=== PATIENT | female | born 1965 | race Caucasian/White ===

== ENCOUNTER 2023-04-04 00:48 | Inpatient (IN) | payer OTHER, SELFPAY ==
[2023-04-04 01:24] VITALS: BMI 21.6
[2023-04-04 01:25] VITALS: BP 132/67; PULSE 80; TEMP 36.5; O2SAT 98
--- NOTE | 2023-04-04 02:53 | PC.NURSE ---
this is the first behavioral health admission for this 58 year old female. legal: CV. dx: unspecified psychotic d/o. nurse to nurse, collateral information obtained prior to admission. patient was a referral from [facility] after assessment was done by Michaelle. patient was a referral to [facility] due to 's concern of her mental well being describing erratic, agitated and confused behavior at home. behaviors included physical acting out towards him, poor sleep and appearance of confusion, nonsensical statements. no documented incidents of suicidal thinking and denied on admission. patient does describe self as an ''anxious Maru'' patient was at [facility] since 04/02/23 @ 0846. during assessment patient was clear, able to follow directions and answer questions without hesitation. no behavioral health providers. no reported HX of treatment. 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 patient with nephrostomy tube and external bag. reports changing dsd daily-currently dry, clean and intact. reports needing to flush tubing bid. due to medical status was placed on 5 minute checks upon arrival to unit and will continue to stay on 5's. it is noted that patient has a flagged adverse reaction to codeine ''I get morgan'' but has been prescribed oxycodone for pain management. patient did not receive any oxycodone while in the ER. hospitalist consult placed for assessment, care orders and to evaluate other pain management options. patient is also focused on her sense of feeling constipated but did state having a BM 04/03/23. oriented to unit. safety tool completed. treatment plan initiated.
--- NOTE | 2023-04-04 04:52 | PC.NURSE ---
behavior-patient slept for 1 hour. on rising was hyperverbal. clapps hands/fingers and calls them ''ticks' some mood lability noted.
[2023-04-04] MEDS: LORazepam 1 MG TABLET PO ×2 (05:16→23:46)
[2023-04-04] MEDS: Acetaminophen 325 MG TABLET 650 MG PO ×3 (05:17→21:13)
--- NOTE | 2023-04-04 05:33 | PC.NURSE ---
urine bag-150 cc dark yellow urine with no sediment noted, emptied at this time.
[2023-04-04 08:45] VITALS: BP 132/75; PULSE 95; RESP 18; TEMP 36.6; O2SAT 99
--- NOTE | 2023-04-04 11:12 | P.CONHOSP_ITS ---
History of Present Illness Data of Consult Service Date: 04/04/23 Primary Care Provider: Unknown Physician HPI Reason for consult: Admission H&P Pt is a 58-year-old female with a PMH significant for?hx of left hip fracture, galucoma, obstructing nephrolithiasis with nephrostomy in place, chronic left hip and leg pain on chronic opioids, and unspecified psychotic disorder who is admitted to psychiatry unit for feeling overwhelmed and having disorganized, paranoid, delusional thoughts about family. Medical consult for admission H&P. Patient recently presented to [facility] on 03/21/2023 with severe abdominal pain and CT of abdomen pelvis showed 27 mm obstructing stone in the left ureteropelvic junction. Patient then had placement of a left percutaneous nephrostomy. Patient's hospital course was complicated by fluid overload and clots forming in her PCN tube, which need to be flushed q8hr with normal saline. Patient not currently complaining of back pain or pain at site of urostomy, but notes occasional mild abdominal ?discomfort.? Patient states her appetite varies, sometimes she to eat, other times she only has a bite or two before experiencing anorexia. Patient is a former smoker who now vapes, also smokes marijuana daily, denies more than occasional social alcohol use, denies recent drug use. Patient also states she has a history of a broken right hip some years ago for which she did not seek immediate medical attention. Patient states bedtime she saw her PCP and had x-rays done, PCP stated that her hip had already fused. Patient complains of chronic left hip and leg pain and reduced ROM. Patient has been chronically on opioids years now, and complains of chronic constipation. Patient states she is trying to wean herself off of oxycodone. Review of Systems Review of Systems: Cold sores in mouth Chronic left hip and leg pain Chronic constipation Yes all other systems are reviewed and are negative PMFSH Social History Household Members: Spouse Housing: House Do you presently have visiting nurse or other home services: No Patient Tobacco Use Status: Never used Tobacco Years Smoked: 12 years Smoked in Last 30 Days: Yes e-Cigarette/Vaping Use: Currently Using Frequency of e-Cigarette/Vaping Use: every day Patient Interested in Nicotine Replacement: Yes (lozenger) Second Hand Smoke Exposure: No Use of substances other than those prescribed or required for medical reasons: Yes Substance Use Type: Marijuana Substance Use Frequency: Daily Last Used Substance: Days (ago) Currently Displaying Signs/Symptoms of Drug Intoxication Withdrawal: No Any prior treatment program specific to substance use: No Have you been hit, kicked, punched, or otherwise hurt by someone within the past year? If so, by whom?: No Do you feel safe in your current relationship?: Yes Is there a partner from a previous relationship who is making you feel unsafe now?: No Are you made to feel afraid or neglected: No Spiritual Healthcare Practices: none identified Adventism Healthcare Practices: none identified Cultural Healthcare Practices: none identified Advance Directives: No Advance Directives Information Provided: No Do you have thoughts of harming others: None Do you have a plan to hurt others: No Plan Recently lost weight without trying: No How much weight loss: Not applicable Eating poorly because of decreased appetite: No Nutrition screen score: 0 Nutrition Risks: No Nutritional Risk Patient : No : No Poor oral hygiene: No (missing teeth) service: No Sexual orientation: Straight/Heterosexual Meds Allergies Allergy/AdvReac Type Severity Reaction Status Date / Time Sulfa (Sulfonamide Allergy Hives Verified 04/04/23 02:00 Antibiotics) codeine AdvReac Agitated Verified 04/04/23 02:00 Active Medications: Current Medications Acetaminophen (Acetaminophen 325 Mg Tablet) 650 mg PO Q6H PRN PRN Reason: Headache/Pain Mild Scale (1-3) Last Admin: 04/04/23 05:17 Dose: 650 mg Al Hydroxide/Mg Hydroxide (Magnesium Hydrox/Alum Hydrox 30 Ml Oral.Susp) 30 ml PO Q6H PRN PRN Reason: Heartburn/Nausea Hydroxyzine HCl (Hydroxyzine Hcl 25 Mg Tablet) 25 mg PO Q6H PRN PRN Reason: Anxiety Lorazepam (Lorazepam 1 Mg Tablet) 1 mg PO Q6H PRN PRN Reason: Anxiety Last Admin: 04/04/23 05:16 Dose: 1 mg Magnesium Hydroxide (Milk Of Magnesia 30 Ml Oral.Susp) 30 ml PO DAILY PRN PRN Reason: Constipation Ondansetron HCl (Ondansetron Odt 8 Mg Tab.Rapdis) 8 mg TRANSLINGU Q8H PRN PRN Reason: Nausea Oxycodone HCl (Oxycodone Hcl Immed Release 5 Mg Tablet) 5 mg PO Q6H PRN PRN Reason: Pain, Moderate(Pain Scale 4-6) Trazodone HCl (Trazodone Hcl 50 Mg Tablet) 50 mg PO BEDTIME MRX1 PRN PRN Reason: Insomnia Home Medications Medication Instructions Recorded Confirmed Last Taken Type naloxone 4 mg/actuation nasal spray spray intranasal NEEDED PRN 04/04/23 Unknown History Opiate Reversal ondansetron HCl 4 mg tablet 4 mg PO Q8H PRN Nausea 04/04/23 04/04/23 Unknown History oxybutynin chloride 5 mg 5 mg PO DAILY 04/04/23 04/04/23 04/03/23 10:00 History tablet,extended release 24 hr oxycodone 5 mg tablet PO Q4-6H PRN Pain 04/04/23 2 Days Ago History ~04/02/23 Physical Exam Vital Signs and Narrative: Vital Signs: Last Vital Signs Temp 97.9 F 04/04/23 08:45 Pulse 95 04/04/23 08:45 Resp 18 04/04/23 08:45 BP 132/75 04/04/23 08:45 Pulse Ox 99 04/04/23 08:45 O2 Del Method Room Air 04/04/23 08:45 BMI result Body Mass Index 21.6 Constitutional: Alert, anxious, in no acute distress. Mental Status: Oriented to person, place and time. Eyes: Pupils are equal, round, and reactive to light. Ear, Nose, and Throat: Small apthous ulcer on left lateral aspect of tongue. Poor dentition. Mucous membranes moist. Ears and nose without deformities. Trachea midline. Respiratory: Clear to auscultation bilaterally. No wheezing, rales, or rhonchi. Cardiovascular: S1, S2 regular. No murmurs, rubs, or gallops. Gastrointestinal: Abdomen soft, non-tender, non-distended. Normal bowel sounds. Neurologic: Cranial nerves II-XII are grossly intact bilaterally. No focal neurological deficits. Moves all extremities spontaneously. Skin: No rashes or lesions noted. : Left-sided nephrostomy in place, draining clear yellow urine, no clots in tubing noted. Musculoskeletal: Diminished strength and limited ROM of right leg, chronic. Extremities: No edema. Psychiatric: Anxious with tangential thoughts. Results Labs 04/05/23 08:32 04/05/23 08:32 Assessment and Plan (1) Routine history and physical examination of adult: Status: Acute (2) Nephrolithiasis: Status: Acute Plan Pt is a 58-year-old female with a PMH significant for?hx of left hip fracture, galucoma, obstructing nephrolithiasis with nephrostomy in place, chronic left hip and leg pain on chronic opioids, and unspecified psychotic disorder who is admitted to psychiatry unit for feeling overwhelmed and having disorganized, paranoid, delusional thoughts about family. Medical consult for admission H&P. Mood disorder Plan as per Psychiatry Nephrolithiasis Patient with a 27 mm obstructing left ureteral stone Patient had nephrostomy placed on 03/21/2023 at [facility] Hospital course was complicated by UTI and clots obstructing her PCN tube At [facility] patient had PCN tube flushed with NS q8h; pt claims should be flushed bid outpatient Continue oxybutynin Will get urology consult for tube care Pt should have f/u with [facility] urology sometime between 03/13/2023-03/20/2023 Aphthous ulcers Patient complains of current outbreak on her tongue Continue Anbesol Fluid overload Patient's recent hospital course at [facility] complicated by fluid overload pl eural effusions Patient treated with Lasix in the hospital, not sent home on any diuretics Patient currently appears euvolemic Chronic left hip and leg pain Patient has been on oxycodone for years but states she has been trying to wean herself off and only use Tylenol Acetaminophen for pain management Monitor pain status Thank you for allowing us to participate in the care of this patient. We will continue to follow for now, pending Urology input. Please let us know if there are any acute complaints or questions. Time Spent With Patient Time: Total time managing care of this patient today ____ minutes.
[2023-04-04] MEDS: Ondansetron ODT 8 MG TAB.RAPDIS TRANSLINGU (16:39)
--- NOTE | 2023-04-04 16:47 | PC.NURSE ---
0945 dressing dry and intact to left flank area. Light Yellow urine draining into closed drainage bag. Kelli will empty bag herself.
--- NOTE | 2023-04-04 16:50 | PC.NURSE ---
Per Grayson, COMPLIANCE REPRESENTATIVE DEALER do not flush Nephrostomy tube or change dressing until Pt has urology consult scheduled for tomorrow , 04/05/2023
--- NOTE | 2023-04-04 17:27 | P.HPPS_ITS ---
HPI Date of Service: 04/04/23 Chief Complaint: Psychotic disorder Sources of Information: patient interviewed, chart reviewed and crisis/core team assessment reviewed HPI Subjective Notes: Schaffer Warning and Conditional Voluntary Narrative: Pt is 58 yo female admitted to from [facility] where she presented due to agitation, paranoia and delusions about family. Pts symptoms have a recent onset in context of medical issues; Pt has nephrostomy tube placed March 2023 for 27 mm nephrolithiasis. She also treated inpatient at [facility] for the tube placement but also for septicemia and UTI. She was discharged from [facility] on Mar 30 2023. Pt believes that her symptoms have been caused by the trauma of hospitalization where she experience severe SOB x 2 due to fluid compression and thouhght she would . She also believes the oxycodone which she says she did not ask for caused her to be loopy. She states she was trying not to take the oxycodone at home despite severe pain and that is why she was not sleeping and was pacing at night; she does say that her is a very regimented person and his anxiety about her treatment and the time schedule for medications, bandage changes and flusihng of tube made her more and more anxious;She present with labile mood, eager to talk, frequent tangents and losing track of her thoughts. she has memory loss for some of her hospital stay in March. Past Psychiatric History: Patient denies any past treatment for mental illness. describes herself as always having been an anxious person; reports using marijuana daily for years and says she has a medical card for it. Pt denies regular use of opiates prior to kidney stone which was diagnosed 03/21/23. she has had kidney stones in past and was on opiate at that time but denies use of opiates on a regular basis. She denies any other use of illicit drugs or ETOH. 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 Substance History: daily marijuana Trauma History: pt reports she thinks she has PTSD from recent medical events Diagnostics Vital Signs (24Hr): Vital Signs - 24 hr 04/04/23 01:25 04/04/23 08:45 Temperature 97.7 F 97.9 F Pulse Rate 80 95 Respiratory Rate 18 Blood Pressure 132/67 132/75 Pulse Oximetry 98 99 Oxygen Delivery Method Room Air Room Air BMI result Body Mass Index 21.6 Meds/Allergies Meds Home Medications Medication Instructions Recorded Confirmed Type naloxone 4 mg/actuation nasal spray spray intranasal NEEDED PRN 04/04/23 History Opiate Reversal ondansetron HCl 4 mg tablet 4 mg PO Q8H PRN Nausea 04/04/23 04/04/23 History oxybutynin chloride 5 mg 5 mg PO DAILY 04/04/23 04/04/23 History tablet,extended release 24 hr oxycodone 5 mg tablet PO Q4-6H PRN Pain 04/04/23 History Allergies Allergies Allergy/AdvReac Type Severity Reaction Status Date / Time Sulfa (Sulfonamide Allergy Hives Verified 04/04/23 02:00 Antibiotics) codeine AdvReac Agitated Verified 04/04/23 02:00 Mental Status Exam Mental Status Exam Narrative: In hospital [facility], hygiene fair, cooperative, pleasant, expansive, elevated mood with and anxiety and irritability;hyperaroused, does not express delusional ideas, no paranoid ideas, denies AH or VH , memory poor for recent events, judgment and insight fair to poor; denies SI or HI Assessment & Plan Assessment & Plan (1) Routine history and physical examination of adult: Status: Acute Code(s): Z00.00 - Encounter for general adult medical examination without abnormal findings (2) Nephrolithiasis: Status: Acute Code(s): N20.0 - Calculus of kidney (3) Unspecified psychosis: Status: Acute Code(s): F29 - Unspecified psychosis not due to a substance or known physiological condition (4) Anxiety about health: Status: Acute Code(s): F41.8 - Other specified anxiety disorders Plan Pt is a 58-year-old female with a PMH significant for?hx of left hip fracture, galucoma, obstructing nephrolithiasis with nephrostomy in place, chronic left hip and leg pain, Anxiety and unspecified psychotic disorder who is admitted to [facility] psychiatry unit for feeling overwhelmed and having disorganized, paranoid, delusional thoughts about family.Rule out Bipolar disorder; Rule out PTSD; Rule out Substance Induced Psychosis. Plan: CV 15 min checks Medical Management per Hospitalist consult Pending urology consult pt will need outpatient follow up at [facility] for [facility]rol[facility] collect collateral information ativan prn for anxiety oxycodone 5 mg and tylenol prn for pain managemnt monitor for opiate withdrawal reassess for SSRI if appropriate Patient educated on: diagnosis, medication risk/benefits and therapeutic strategies Informed Consent: understands and further education needed Reason for continued inpatient stay Substantial Risk for: harm to self, harm to others, inability to function and med/psych decompensation Statement Statement: I have reviewed the history and physical and performed a pertinent examination on my patient. No changes have occurred unless specified. If the History and Physical was not performed prior to admission, the Hospitalist's service will be consulted for completing the admission physical. Time Spent With Patient Time: Total time managing care of this patient today ___75_ minutes.
[2023-04-04 20:20] VITALS: BP 132/81; PULSE 96; RESP 18; TEMP 36.4; O2SAT 98
[2023-04-04] MEDS: traZODone HCL 50 MG TABLET PO ×2 (21:13→23:46)
[2023-04-05] MEDS: Ondansetron ODT 8 MG TAB.RAPDIS TRANSLINGU (02:11)
[2023-04-05] MEDS: Acetaminophen 325 MG TABLET 650 MG PO ×3 (05:18→21:13)
--- NOTE | 2023-04-05 05:49 | PC.NURSE ---
Kelli is noted t be hyper verbal and manic. she is very restless and unable to sleep except in brief naps the most she slept throughout the night was approximately 3 hours. she is perseverative about wanting to go home today 04/05/23. she has asked this quality analyst/technical writer multiple times if sh can go home I feel fine I'm not really confused any more and I too myself off the oxy so there's no reason to keep me here any longer
[2023-04-05 08:15] VITALS: BP 134/61; PULSE 87; RESP 18; TEMP 36.6; O2SAT 95
[2023-04-05 08:41] LABS: MANUAL DIFF FLAG NO
[2023-04-05 08:44] LABS: Basophils Absolute Auto 0.1 X10*3/uL (0.0-0.2); Basophils Percent Auto 0.9 % (0-2); Eosinophils Absolute Auto 0.1 X10*3/uL (0.0-0.4); Eosinophils Percent Auto 1.4 % (0-4); Hematocrit 32.8 % (37.0-47.0); Hemoglobin 10.4 g/dl (12.0-16.0); Imm Gran Abs Auto 0.05 X10*3/uL (0.00-0.03); Imm Gran Pct Auto 0.7 % (0.0-0.4); Lymphocytes Absolute Auto 1.5 X10*3/uL (1.2-4.9); Lymphocytes Percent Auto 20.2 % (20-40); Mean Corpuscular HGB Conc 31.7 g/dl (31.0-35.0); Mean Corpuscular Hemoglobin 31.7 pg (27.0-33.0); Mean Platelet Volume 9.2 fL (9.4-12.3); Monocytes Absolute Auto 0.6 X10*3/uL (0.1-1.2); Monocytes Percent Auto 8.7 % (2-11); Neutrophils Percent Auto 68.1 % (45-73); Platelet Count 396 X10*3/uL (160-400); Red Blood Count 3.28 X10*6/uL (4.20-5.50); White Blood Count 7.4 X10*3/uL (4.8-10.8)
[2023-04-05 09:12] LABS: Alanine Aminotransferase 13 U/L (0-31); Albumin Level 3.7 g/dL (3.5-5.0); Alkaline Phosphatase 97 U/L (39-117); Anion Gap 12 (12-20); Aspartate Amino Transferase 30 U/L (5-31); Bilirubin Direct 0.2 mg/dL (0.0-0.5); Bilirubin Total 0.6 mg/dL (0.0-1.0); Blood Urea Nitrogen 10 mg/dL (9-16); Carbon Dioxide 26 mmol/L (22-29); Chloride 108 mmol/L (96-108); Cholesterol 186 mg/dL; Creatinine Clr Calc Pharmacy 60.9; Estimated Glomerular Filt Rate > 60; Glucose Fasting 109 mg/dL (60-99); HDL Cholesterol 47 mg/dL; LDL Cholesterol Calculated 117 mg/dl; Potassium 4.8 mmol/L (3.3-5.1); Sodium 141 mmol/L (135-145); Total Protein 6.7 g/dL (6.5-8.0); Triglycerides 111 mg/dL
[2023-04-05] MEDS: oxyBUTYnin chloride ER 5 MG TAB.ER.24 PO (09:25)
[2023-04-05 09:31] LABS: Thyroid Stimulating Hormone 0.93 uIU/mL (0.32-4.0)
[2023-04-05] MEDS: LORazepam 1 MG TABLET PO ×2 (09:32→21:55)
--- NOTE | 2023-04-05 11:14 | PM.EVENT ---
Event Note Date of Service: 04/05/23 Event Note: Pt requiring nephrostomy tube care with obstructive 27mm stone (chronic) withoutpt follow up with urology. Urology has been consulted for further management of care. Thank you for allowing me to participate in this consult. Signing off at this time. Please do not hesitate to call for further questions. Time Spent With Patient Time: Total time managing care of this patient today ____ minutes.
[2023-04-05 11:29] LABS: Folate 12.1 ng/mL (> or = 4.0); Vitamin B12 1945 pg/mL (200-900)
--- NOTE | 2023-04-05 12:44 | P.CNUR_ITS ---
History of Present Illness Consult details Consult date: 04/05/23 Narrative: Consulting complaint - left nephrostomy tube 58-year-old female. Admitted M5 secondary to agitation, delusions. Recent admission to [facility] for treatment of urosepsis. Found to have 27 mm left renal stone Prior history of renal stones treated by Dr. Matthews at [facility] Seen at [facility] by [facility]. Nephrostomy tube placed for decompression It appears that the patient's psychologic State may have been secondary to treatment and management of urosepsis washed at [facility]. Discussion with patient and today regarding management of nephrostomy tube. May flush 5-6 cc every 3 days if minimal blood in urine drainage. Discussed nephrostomy dressing. There is planned follow-up with [facility] group regarding management of staghorn +ureteric stones. No acute urologic intervention required during this hospital admission Review of Systems Constitutional: Constitutional: Reports as per HPI and Reports no additional constitutional complaints Cardiovascular: Cardiovascular: Reports as per HPI and Reports no additional cardiovascular complaints Respiratory: Respiratory: Reports as per HPI and Reports no additional respiratory complaints Gastrointestinal: Gastrointestinal: Reports as per HPI and Reports no additional gastrointestinal complaints Genitourinary: Genitourinary: Reports as per HPI Musculoskeletal: Musculoskeletal: Reports no additional musculoskeletal complaints and Reports as per HPI Neurologic: Reports system reviewed and no additional complaints, except as documented and Reports as per HPI [facility] Social History Social History Household Members: Spouse Housing: House Do you presently have visiting nurse or other home services: No Patient Tobacco Use Status: Never used Tobacco Years Smoked: 12 years Smoked in Last 30 Days: Yes e-Cigarette/Vaping Use: Currently Using Frequency of e-Cigarette/Vaping Use: every day Patient Interested in Nicotine Replacement: Yes (lozenger) Second Hand Smoke Exposure: No Use of substances other than those prescribed or required for medical reasons: Yes Substance Use Type: Marijuana Substance Use Frequency: Daily Last Used Substance: Days (ago) Currently Displaying Signs/Symptoms of Drug Intoxication Withdrawal: No Any prior treatment program specific to substance use: No Have you been hit, kicked, punched, or otherwise hurt by someone within the past year? If so, by whom?: No Do you feel safe in your current relationship?: Yes Is there a partner from a previous relationship who is making you feel unsafe now?: No Are you made to feel afraid or neglected: No Spiritual Healthcare Practices: none identified Sabianist Healthcare Practices: none identified Cultural Healthcare Practices: none identified Advance Directives: No Advance Directives Information Provided: No Do you have thoughts of harming others: None Do you have a plan to hurt others: No Plan Recently lost weight without trying: No How much weight loss: Not applicable Eating poorly because of decreased appetite: No Nutrition screen score: 0 Nutrition Risks: No Nutritional Risk Patient : No : No Poor oral hygiene: No (missing teeth) Meds Allergies Allergy/AdvReac Type Severity Reaction Status Date / Time Sulfa (Sulfonamide Allergy Hives Verified 04/04/23 02:00 Antibiotics) codeine AdvReac Agitated Verified 04/04/23 02:00 Active Medications: Current Medications Acetaminophen (Acetaminophen 325 Mg Tablet) 650 mg PO Q6H PRN PRN Reason: Headache/Pain Mild Scale (1-3) Last Admin: 04/05/23 05:18 Dose: 650 mg Al Hydroxide/Mg Hydroxide (Magnesium Hydrox/Alum Hydrox 30 Ml Oral.Susp) 30 ml PO Q6H PRN PRN Reason: Heartburn/Nausea Benzocaine (Benzocaine 20 % Oral Gel 9 Gm Tube) 1 appl MUCOUS MEM QID PRN; Protocol PRN Reason: Pain, Mild (Pain Scale 1-3) Hydroxyzine HCl (Hydroxyzine Hcl 25 Mg Tablet) 25 mg PO Q6H PRN PRN Reason: Anxiety Lorazepam (Lorazepam 1 Mg Tablet) 1 mg PO Q6H PRN PRN Reason: Anxiety Last Admin: 04/05/23 09:32 Dose: 1 mg Magnesium Hydroxide (Milk Of Magnesia 30 Ml Oral.Susp) 30 ml PO DAILY PRN PRN Reason: Constipation Ondansetron HCl (Ondansetron Odt 8 Mg Tab.Rapdis) 8 mg TRANSLINGU Q8H PRN PRN Reason: Nausea Last Admin: 04/05/23 02:11 Dose: 8 mg Oxybutynin Chloride (Oxybutynin Chloride Er 5 Mg Tab.Er.24) 5 mg PO DAILY MORGAN Last Admin: 04/05/23 09:25 Dose: 5 mg Oxycodone HCl (Oxycodone Hcl Immed Release 5 Mg Tablet) 5 mg PO Q6H PRN PRN Reason: Pain, Moderate(Pain Scale 4-6) Trazodone HCl (Trazodone Hcl 50 Mg Tablet) 50 mg PO BEDTIME MRX1 PRN PRN Reason: Insomnia Last Admin: 04/04/23 23:46 Dose: 50 mg Home Medications Medication Instructions Recorded Confirmed Last Taken Type naloxone 4 mg/actuation nasal spray spray intranasal NEEDED PRN 04/04/23 Unknown History Opiate Reversal ondansetron HCl 4 mg tablet 4 mg PO Q8H PRN Nausea 04/04/23 04/04/23 Unknown History oxybutynin chloride 5 mg 5 mg PO DAILY 04/04/23 04/04/23 04/03/23 10:00 History tablet,extended release 24 hr oxycodone 5 mg tablet PO Q4-6H PRN Pain 04/04/23 2 Days Ago History ~04/02/23 Physical Exam Vital Signs: Vital Signs: Last Vital Signs Temp 97.8 F 04/05/23 08:15 Pulse 87 04/05/23 08:15 Resp 18 04/05/23 08:15 BP 134/61 04/05/23 08:15 Pulse Ox 95 04/05/23 08:15 O2 Del Method Room Air 04/05/23 08:15 BMI result Body Mass Index 21.6 Const: General: cooperative, healthy appearing, comfortable and no acute distress Orientation/consciousness: patient oriented x3 HEENT: Face and sinus: Yes normal facial exam Mouth: moist mucous membranes Neck: Neck: Yes normal visual inspection, Yes full ROM and Yes trachea midline Chest: Chest palpation & inspection: normal inspection of the chest Resp: Effort & Inspection: normal respiratory effort, able to speak in complete sentences and no respiratory distress GI: Inspection: Yes normal to inspection Back/Spine/Pelvis: Cervical Spine: normal cervical lordosis Thoracic/Lumbar Spine: thoracic and lumbar spine normal to inspection Skin: General skin exam: no rashes or lesions noted Neuro: General: patient oriented x3, tone normal and moves all extremities Extrem: General: Yes normal to inspection and Yes capillary refill normal Results Labs 04/05/23 08:32 04/05/23 08:32 Labs: Abnormal lab results 04/05/23 04/05/23 04/05/23 Range/Units 08:32 08:32 10:25 RBC 3.28 L (4.20-5.50) X10*6/uL Hgb 10.4 L (12.0-16.0) g/dl Hct 32.8 L (37.0-47.0) % MCV 100.0 H (80.0-98.0) fL MPV 9.2 L (9.4-12.3) fL Immature Gran % (Auto) 0.7 H (0.0-0.4) % Abs Immat Gran (auto) 0.05 H (0.00-0.03) X10*3/uL Fasting Glucose 109 H (60-99) mg/dL Vitamin B12 1945 H (200-900) pg/mL Short CBC 04/05/23 Range/Units 08:32 WBC 7.4 (4.8-10.8) X10*3/uL Hgb 10.4 L (12.0-16.0) g/dl Hct 32.8 L (37.0-47.0) % Plt Count 396 (160-400) X10*3/uL BMP 04/05/23 08:32 Sodium 141 Potassium 4.8 Chloride 108 Carbon Dioxide 26 BUN 10 Creatinine 0.76 Calcium 9.0 Liver Function 04/05/23 Range/Units 08:32 Total Bilirubin 0.6 (0.0-1.0) mg/dL Direct Bilirubin 0.2 (0.0-0.5) mg/dL AST 30 (5-31) U/L ALT 13 (0-31) U/L Alkaline Phosphatase 97 (39-117) U/L Albumin 3.7 (3.5-5.0) g/dL All other labs normal. Assessment and Plan (1) Nephrolithiasis: Status: Acute Plan Follow-up with [facility] as planned Time Spent With Patient Time: Total time managing care of this patient today ____ minutes. Procedures Date of Service Date of Service: 04/05/23
--- NOTE | 2023-04-05 13:35 | PC.NURSE ---
dressing to left flank area dry and intact, urine is clear Yellow draining into bag. Kelli empties her bag when about 1/[address] full .
--- NOTE | 2023-04-05 14:55 | HO.PSYCHPN ---
Subjective Subjective Date of Service: 04/05/23 Reason For Visit: Psychotic disorder Subjective Notes: Conditional Voluntary Interim History: Pt reports she was in excruciating pain s/s to kidney stone. She reports she has had them 2 years ago but not as big. She does present slightly as hyperverbal but no loose associations. She reports pain is less and at this point she relies mostly on acetaminophen. She denies SI/HI. no signs of psychosis or delusional. attention is fair. No overt s/s of delirum- pt fully oriented x 4. Pt seen by urologist, no procedure scheduled for inpt but pt instructed to follow up outpatient with urology. Medication Compliance: Yes Side effects from medications: No Attending Groups: Intermittent Review of Systems Review of Systems 27 mm nephrolithiasis nephrostomy tube placed March 2023 treated for UTI and septicemia March 2023 Cold sores in mouth Chronic left hip and leg pain Chronic constipation Yes all other systems are reviewed and are negative Constitutional: Reports as per HPI and Reports no additional constitutional complaints Cardiovascular: Reports as per HPI and Reports no additional cardiovascular complaints Respiratory: Reports as per HPI and Reports no additional respiratory complaints Gastrointestinal: Reports as per HPI and Reports no additional gastrointestinal complaints Musculoskeletal: Reports no additional musculoskeletal complaints and Reports as per HPI Reports system reviewed and no additional complaints, except as documented and Reports as per HPI Mental Status Exam Mental Status Exam Narrative: In hospital Fito, hygiene fair, cooperative, pleasant. Psychomotor: no agitation or retardation noted. Speech: clear, somewhat hyperverbal but not pressured. TC: does not express delusional ideas, no paranoid ideas, denies AH or VH. TP: tangential. Mood: better Affect: congruent, slightly expansive. No SI/HI. No psychosis or delusions. judgment/insight: improving x 2. Diagnostics Vital Signs (24Hr): Vital Signs - 24 hr 04/04/23 20:20 04/05/23 08:15 Temperature 97.6 F 97.8 F Pulse Rate 96 87 Respiratory Rate 18 18 Blood Pressure 132/81 134/61 Pulse Oximetry 98 95 Oxygen Delivery Method Room Air Room Air BMI result Body Mass Index 21.6 Labs 04/05/23 08:32 04/05/23 08:32 Labs: Laboratory Results - last 48 hr 04/05/23 04/05/23 04/05/23 08:32 08:32 10:25 WBC 7.4 RBC 3.28 L Hgb 10.4 L Hct 32.8 L MCV 100.0 H MCH 31.7 MCHC 31.7 RDW 14.0 Plt Count 396 MPV 9.2 L Immature Gran % (Auto) 0.7 H Neut % (Auto) 68.1 Lymph % (Auto) 20.2 [place] % (Auto) 8.7 Eos % (Auto) 1.4 Baso % (Auto) 0.9 Lymph # (Auto) 1.5 [place] # (Auto) 0.6 Eos # (Auto) 0.1 Baso # (Auto) 0.1 Abs Immat Gran (auto) 0.05 H Absolute Neuts (auto) 5.0 Absolute Nucleated RBC 0.000 Nucleated RBC % (auto) 0.0 Sodium 141 Potassium 4.8 Chloride 108 Carbon Dioxide 26 Anion Gap 12 BUN 10 Creatinine 0.76 Estim Creat Clear Calc 60.9 Estimated GFR > 60 Fasting Glucose 109 H Calcium 9.0 Total Bilirubin 0.6 Direct Bilirubin 0.2 AST 30 ALT 13 Alkaline Phosphatase 97 Total Protein 6.7 Albumin 3.7 Triglycerides 111 Cholesterol 186 LDL Cholesterol, Calc 117 HDL Cholesterol 47 Vitamin B12 1945 H Folate 12.1 TSH 0.93 Medications Medications Current Medications Acetaminophen (Acetaminophen 325 Mg Tablet) 650 mg PO Q6H PRN PRN Reason: Headache/Pain Mild Scale (1-3) Last Admin: 04/05/23 14:10 Dose: 650 mg Al Hydroxide/Mg Hydroxide (Magnesium Hydrox/Alum Hydrox 30 Ml Oral.Susp) 30 ml PO Q6H PRN PRN Reason: Heartburn/Nausea Benzocaine (Benzocaine 20 % Oral Gel 9 Gm Tube) 1 appl MUCOUS MEM QID PRN; Protocol PRN Reason: Pain, Mild (Pain Scale 1-3) Hydroxyzine HCl (Hydroxyzine Hcl 25 Mg Tablet) 25 mg PO Q6H PRN PRN Reason: Anxiety Lorazepam (Lorazepam 1 Mg Tablet) 1 mg PO Q6H PRN PRN Reason: Anxiety Last Admin: 04/05/23 09:32 Dose: 1 mg Magnesium Hydroxide (Milk Of Magnesia 30 Ml Oral.Susp) 30 ml PO DAILY PRN PRN Reason: Constipation Ondansetron HCl (Ondansetron Odt 8 Mg Tab.Rapdis) 8 mg TRANSLINGU Q8H PRN PRN Reason: Nausea Last Admin: 04/05/23 02:11 Dose: 8 mg Oxybutynin Chloride (Oxybutynin Chloride Er 5 Mg Tab.Er.24) 5 mg PO DAILY MORGAN Last Admin: 04/05/23 09:25 Dose: 5 mg Oxycodone HCl (Oxycodone Hcl Immed Release 5 Mg Tablet) 5 mg PO Q6H PRN PRN Reason: Pain, Moderate(Pain Scale 4-6) Trazodone HCl (Trazodone Hcl 50 Mg Tablet) 50 mg PO BEDTIME MRX1 PRN PRN Reason: Insomnia Last Admin: 04/04/23 23:46 Dose: 50 mg Allergies Allergies Allergy/AdvReac Type Severity Reaction Status Date / Time Sulfa (Sulfonamide Allergy Hives Verified 04/04/23 02:00 Antibiotics) codeine AdvReac Agitated Verified 04/04/23 02:00 Assessment & Plan Assessment & Plan (1) Acute delirium: Status: Acute Code(s): R41.0 - Disorientation, unspecified Plan Mrs. Nicole is a 58 year-old woman with no prior psych hx who recently found to have nephrolithiasis, sepsis who presented as agitated, confused most likely in setting of delirium. Pt today presents as coherent. No s/s of delirium. Pt seen by urology who recommend that she follows up with Outpatient urology. PLAN 1. No overt psychiatric condition. no signs of delirum at this point, which most likely explain acute presentation in ED.Pt can be discharged home. Aftercare planning. Patient educated on: diagnosis Informed Consent: understands Reason for continued inpatient stay Substantial Risk for: stable for discharge Time Spent With Patient Time: Total time managing care of this patient today ____ minutes.
[2023-04-05 20:05] VITALS: BP 166/73; PULSE 101; RESP 18; TEMP 36.6; O2SAT 98
[2023-04-05] MEDS: Milk of Magnesia 30 ML ORAL.SUSP PO (21:13)
--- NOTE | 2023-04-06 01:56 | PC.NURSE ---
Addendum entered by Jodie Brewer RN 04/06/23 04:08: Kelli has slept for brief naps throughout the night. she stated that she didn't want to go to sleep because she didn't want to sleep through her discharge time and then have to stay longer she remains hyperverbal manic and intrusive. earlier in the evening she stated that she had no idea when the last time she had a bowel movement (she had told this travel writer on 04/04 that she had moved her bowels on 04/04) and was offered either Milk of Magnesia or prune juice. she requested the prune juice then became somatic about drinking it oh boy I don't know if I can do this, maybe I don't need it. well I probably do. Oh God, ok here I go, oh God I can do it. ok ,ok, she was again offered prune juice, she declined it and drank the Milk of Magnesia. patient asked to do her laundry then later stated there now the hospital laundry is done time to do mine patient redirected for washing hospital laundry as it requires more specialized treatment then what a standard washer and dryer can provide. to which she responded well it was in my room so I figured I needed to wash it Original Note: Kelli was noted to be visible on the unit. she is pleasant, cooperative and social with peers and staff she continues to be hyperverbal and hypomanic. she remains perseverative about discharge. she denies all psychiatric symptoms. but then states well I guess I'm nervous, ya I think I am, maybe she continues to have multiple somatic complaints. oh I'm going to need a bucket, No I'm not going to vomit but I think I should have one just in case I do need to vomit continue to reassure, monitof or safety, continue Plan of Care
[2023-04-06] MEDS: Acetaminophen 325 MG TABLET 650 MG PO (04:03)
[2023-04-06] MEDS: LORazepam 1 MG TABLET PO (04:03)
[2023-04-06] MEDS: Ondansetron ODT 8 MG TAB.RAPDIS TRANSLINGU (06:07)
[2023-04-06 09:09] VITALS: BP 166/88; PULSE 98; RESP 16; TEMP 36.6; O2SAT 99
[2023-04-06] MEDS: oxyBUTYnin chloride ER 5 MG TAB.ER.24 PO (09:10)
--- NOTE | 2023-04-06 10:48 | PM.PSYDC ---
DS: Providers Provider Date of Service: 04/06/23 Date of admission: 04/04/23 00:48 Primary care physician: Unknown Physician Consults: 04/04/23 04:58 Consult to Hospitalist Routine Comment: Consulting Provider: Hospitalist Reason For Exam: new admit/nephrostomy in place for nephrolithiasis 04/04/23 13:20 Consult to Urology Routine Consulting Provider: Robin Carvalho Reason for consultation: Pt with nephrostomy, 27mm obstructing stone DS: Diagnosis Discharge Diagnosis (1) Routine history and physical examination of adult: Status: Inactive (2) Nephrolithiasis: Status: Acute DS: Medications Discharge Medications Home Medications: Home Medications Medication Instructions Recorded Confirmed oxybutynin chloride 5 mg 5 mg PO DAILY 04/04/23 04/04/23 tablet,extended release 24 hr Previous Rx's Medication Instructions Recorded naloxone 4 mg/actuation nasal spray 1 spray intranasal NEEDED PRN 04/06/23 Opiate Reversal 1 day #1 ea ondansetron HCl 4 mg tablet 4 mg PO Q8H PRN Nausea 30 days #90 04/06/23 tabs trazodone 50 mg tablet 50 mg PO BEDTIME 30 days #30 tabs 04/06/23 Mental Status Exam Mental Status Exam Narrative: In hospital Fito, hygiene fair, cooperative, pleasant. Psychomotor: no agitation or retardation noted. Speech: clear, somewhat hyperverbal but not pressured. TC: does not express delusional ideas, no paranoid ideas, denies AH or VH. TP: tangential. Mood: good Affect: congruent, slightly expansive. No SI/HI. No psychosis or delusions. judgment/insight: improving x 2. Data Data Completed and Pending Completed studies during hospitalization [Text1]: 04/05/23 04/05/23 04/05/23 08:32 08:32 10:25 WBC 7.4 RBC 3.28 L Hgb 10.4 L Hct 32.8 L MCV 100.0 H MCH 31.7 MCHC 31.7 RDW 14.0 Plt Count 396 MPV 9.2 L Immature Gran % (Auto) 0.7 H Neut % (Auto) 68.1 Lymph % (Auto) 20.2 [place] % (Auto) 8.7 Eos % (Auto) 1.4 Baso % (Auto) 0.9 Lymph # (Auto) 1.5 [place] # (Auto) 0.6 Eos # (Auto) 0.1 Baso # (Auto) 0.1 Abs Immat Gran (auto) 0.05 H Absolute Neuts (auto) 5.0 Absolute Nucleated RBC 0.000 Nucleated RBC % (auto) 0.0 Sodium 141 Potassium 4.8 Chloride 108 Carbon Dioxide 26 Anion Gap 12 BUN 10 Creatinine 0.76 Estim Creat Clear Calc 60.9 Estimated GFR > 60 Fasting Glucose 109 H Calcium 9.0 Total Bilirubin 0.6 Direct Bilirubin 0.2 AST 30 ALT 13 Alkaline Phosphatase 97 Total Protein 6.7 Albumin 3.7 Triglycerides 111 Cholesterol 186 LDL Cholesterol, Calc 117 HDL Cholesterol 47 Vitamin B12 1945 H Folate 12.1 TSH 0.93 DS: Summary Hospital Course Hospital Course: per 04/04 admission note: Pt is 58 yo female admitted to from [facility] where she presented due to agitation, paranoia and delusions about family. Pts symptoms have a recent onset in context of medical issues; Pt has nephrostomy tube placed March 2023 for 27 mm nephrolithiasis. She also treated inpatient at [facility] for the tube placement but also for septicemia and UTI. She was discharged from [facility] on Mar 30 2023. Pt believes that her symptoms have been caused by the trauma of hospitalization where she experience severe SOB x 2 due to fluid compression and thouhght she would . She also believes the oxycodone which she says she did not ask for caused her to be loopy. She states she was trying not to take the oxycodone at home despite severe pain and that is why she was not sleeping and was pacing at night; she does say that her is a very regimented person and his anxiety about her treatment and the time schedule for medications, bandage changes and flusihng of tube made her more and more anxious;She present with labile mood, eager to talk, frequent tangents and losing track of her thoughts. she has memory loss for some of her hospital stay in March.? Past Psychiatric History: Patient denies any past treatment for mental illness. describes herself as always having been an anxious person; reports? using marijuana daily for years and says she has a medical card for it. Pt denies regular use of opiates prior to kidney stone which was diagnosed 03/21/23. she has had kidney stones in past and was on opiate at that time but denies use of opiates on a regular basis. She denies any other use of illicit drugs or ETOH. 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 She reports she has had them 2 years ago but not as big. She does present slightly as hyperverbal but no loose associations. She reports pain is less and at this point she relies mostly on acetaminophen. She denies SI/HI. no signs of psychosis or delusional. attention is fair. No overt s/s of delirum- pt fully oriented x 4. Pt seen by urologist, no procedure scheduled for inpt but pt instructed to follow up outpatient with urology. Precis: Mrs. Nicole is a 58 year-old woman with no prior psych hx who recently found to have nephrolithiasis, sepsis who presented as agitated, confused most likely in setting of delirium. Pt today presents as coherent. No s/s of delirium. Pt seen by urology who recommend that she follows up with Outpatient urology. PLAN 1. No overt psychiatric condition. no signs of delirum at this point, which most likely explain acute presentation in ED.Pt can be discharged home. Aftercare planning. discharged 04/06. Time Spent with Patient Time attestation: Total time managing care of this patient today ____ minutes. Time spent: Greater than 30 minutes Discharge Plan Discharge Anticipated Discharge Date/Time: 04/06/23 10:45 Patient Disposition: Home, Self-Care Discharge Diagnosis: delirium Referrals: Josafat Barron NP [Nurse Practitioner] - 1 Week (Per patient she has appointment with primary care provider on at 2pm. ) Physician,Oren J [Primary Care Provider] - 1 Week Discharge Medications: New trazodone 50 mg Tablet 50 mg PO BEDTIME 30 Days Qty: 30 0RF Continued oxybutynin chloride 5 mg tablet extended release 24hr 5 mg PO DAILY ondansetron HCl 4 mg tablet 4 mg PO Q8H PRN (Reason: Nausea) 30 Days Qty: 90 0RF Changed naloxone 4 mg/actuation spray,non-aerosol 1 spray intranasal NEEDED PRN (Reason: Opiate Reversal) 1 Days Qty: 1 0RF Discontinued oxycodone 5 mg tablet PO Q4-6H PRN (Reason: Pain) Patient Comments: 5-10 mg dose as needed Discharge Orders: Discharge Order (Routine); Ordered 04/06/23 Ordered By: Jared Arriola Diet: Advance to usual diet Activity on Discharge: As tolerated Stand Alone Forms: Patient Portal Discharge page, Community Support Care Plan Goals: remain safe and sober and stable in the outpatient treatment setting. pursue mental healthcare. Health Concerns: renal calculus and associated complications Plan of Treatment: take medications as prescribed, attend appointments as scheduled. obtain appointments with mental health providers after discharge. Assessment: not at imminent risk of harm to self or others Discharge Date/Time: 04/06/23 11:50
== END 2023-04-06 11:50 | disposition home or self-care (01) | DRG 751 ==
PROVIDERS: Clinical Nurse Specialist Psychiatric/Mental Health; Social Worker; Admitting Provider Psychiatry & Neurology Psychiatry; Visit Provider Psychiatry & Neurology Psychiatry
DX: F29 Unspecified psychosis not due to a substance or known physiological condition (principal); F05 Delirium due to known physiological condition; F41.8 Other specified anxiety disorders; G89.29 Other chronic pain; N20.0 Calculus of kidney; K12.0 Recurrent oral aphthae; Z88.2 Allergy status to sulfonamides; Z88.5 Allergy status to narcotic agent; Z79.899 Other long term (current) drug therapy
CPT/HCPCS: 36415; 80053; 80061; 80076; 82607; 82746; 84443; 85025